=== PATIENT | male | born 1940 | race Caucasian/White ===

== ENCOUNTER 2022-12-04 10:05 | Outpatient (CLI) | payer MEDICARE ==
[2022-12-04 11:44] LABS: Hemoglobin 11.3 g/dL (13.5-17.5); Mean Corpuscular HGB CONC 31.8 g/dL (32.0-36.0); Mean Corpuscular Hemoglobin 27.2 pg (27.0-33.0); Mean Corpuscular Volume 85.5 fl (81.2-95.1); Platelet Count 216 10x3/uL (150-450); Red Blood Cell (RBC) Count 4.15 10x6/uL (4.32-5.72); White Blood Cell (WBC) Count 9.8 10x3/uL (3.5-10.5)
[2022-12-04 11:59] LABS: Prothrombin Time 10.3 sec (9.5-12.1)
[2022-12-04 12:02] LABS: Anion Gap 15 mmol/L (10-20); BUN (Urea Nitrogen) 31 mg/dL (8.4-25.7); Calc. Creatinine Clearance 0 mL/min (70-130); Calcium 9.7 mg/dL (7.8-10.44); Carbon Dioxide 24 mmol/L (23-31); Chloride 104 mmol/L (98-107); Estimated GFR 61; Glucose 98 mg/dL (83-110); Potassium 4.9 mmol/L (3.5-5.1); Sodium 138 mmol/L (136-145)
== END 2022-12-04 10:06 | disposition home or self-care (01) ==
LOC: CSHLAB 10:05
PROVIDERS: ATTEND Specialist
DX: Z01.818 Encounter for other preprocedural examination (principal); I65.29 Occlusion and stenosis of unspecified carotid artery; I73.9 Peripheral vascular disease, unspecified
CPT/HCPCS: 80048; 85027; 85610; 93005; 93010

== ENCOUNTER 2022-12-05 09:55 | Inpatient (IN) | payer MEDICARE, OTHER ==
[~2022-12-05 09:55] MED LIST: Iopamidol 300 61% 100 ML VIAL FS ONE
[2022-12-05] MEDS ORDERED: Phenylephrine 40 MG/NS 250 ML 0 ML ONE (09:56)
[2022-12-05] MEDS ORDERED: Lidocaine 1% (PF) 30 ML VIAL ONE ×2 (09:58)
[2022-12-05] MEDS ORDERED: Nitroglycerin 50 MG/250 ML BOT 0 ML ONE (09:59)
[2022-12-05] MEDS ORDERED: Heparin 10,000 UNITS/ 10 ML VIAL ONE (09:59)
[2022-12-05] MEDS ORDERED: Adenosine 6 MG/2 ML VIAL ONE (09:59)
[2022-12-05] MEDS ORDERED: Atropine Sulfate 0.4 mg/1 ml Vial ONE (10:02)
[2022-12-05] MEDS ORDERED: PHENYLEPHRINE-NS 100 MCG/ML 10 ML SYRINGE ONE (10:03)
[2022-12-05] MEDS ORDERED: Aspirin 325 MG TAB ONE (10:16)
[2022-12-05] MEDS ORDERED: Ascorbic Acid 500 mg Chewable Tablet ONE (10:16)
[2022-12-05] MEDS ORDERED: Fentanyl 100 MCG/2 ML VIAL ONE (11:12)
[2022-12-05] MEDS ORDERED: Midazolam HCl 2 mg/2 ml Vial ONE (11:12)
[2022-12-05] MEDS ORDERED: Ondansetron PF 4 MG/2 ML Vial ONE (11:59)
[2022-12-05] MEDS ORDERED: Nitroglycerin 0.4 MG TAB (25 Tab Bottle) ONE (12:16)
[2022-12-05] MEDS ORDERED: Nitroglycerin 0.4 MG TAB (25 Tab Bottle) SL PRN (12:26)
[2022-12-05] MEDS ORDERED: Mag-Al 1200 mg/1200 mg/30 ML UDCUP PO PRN (12:26)
[2022-12-05] MEDS ORDERED: Milk Of Magnesia 30 ML UDCUP PO PRN (12:26)
[2022-12-05] MEDS ORDERED: Acetaminophen/Codeine 30-300mg Tablet PO PRN (12:26)
[2022-12-05] MEDS ORDERED: traMADol HCl 50 MG TAB PO PRN (12:26)
[2022-12-05] MEDS ORDERED: Sodium Chloride 0.9% 1,000 ML IV SCH (12:30)
[2022-12-05] MEDS ORDERED: Clopidogrel Bisulfate 300 MG TAB ONE (13:21)
[2022-12-05 16:20] VITALS: TEMP 97.6
[2022-12-05] MEDS ORDERED: Rosuvastatin 10 MG TAB PO SCH (21:00)
[2022-12-06 03:41] LABS: #Basophils 0.1 10x3/uL (0.0-0.2); #Eosinphils 0.2 10x3/uL (0.0-0.5); #Monocytes 1.3 10x3/uL (0.0-1.1); #Neutrophils 8.3 10x3/uL (1.5-8.4); %Basophils 0.7 % (0.0-2.0); %Eosinophils 1.5 % (0.0-6.0); %Lymphocytes 7.4 % (18.0-47.0); %Monocytes 11.8 % (0.0-10.0); %Neutrophils 78.2 % (40.0-75.0); Hemoglobin 9.9 g/dL (13.5-17.5); Mean Corpuscular HGB CONC 31.7 g/dL (32.0-36.0); Mean Platelet Volume 10.1 fl (7.4-10.4); Platelet Count 202 10x3/uL (150-450); RBC Distribution Width 15.1 % (11.5-14.5); Red Blood Cell (RBC) Count 3.67 10x6/uL (4.32-5.72); White Blood Cell (WBC) Count 10.7 10x3/uL (3.5-10.5)
[2022-12-06 03:48] LABS: ALT (SGPT) 10 U/L (8-55); AST (SGOT) 16 U/L (5-34); Albumin 3.3 g/dL (3.4-4.8); Alkaline Phosphatase 68 U/L (40-110); Anion Gap 15 mmol/L (10-20); BUN (Urea Nitrogen) 33 mg/dL (8.4-25.7); Calc. Creatinine Clearance 39 mL/min (70-130); Calcium 8.7 mg/dL (7.8-10.44); Carbon Dioxide 23 mmol/L (23-31); Chloride 107 mmol/L (98-107); Estimated GFR 54; Globulin 2.5 g/dL (2.4-3.5); Glucose 86 mg/dL (83-110); Potassium 4.9 mmol/L (3.5-5.1); Sodium 140 mmol/L (136-145)
[2022-12-06 03:50] LABS: Bilirubin, Total 0.3 mg/dL (0.2-1.2); Protein, Total 5.8 g/dL (5.8-8.1)
[2022-12-06] MEDS: Aspirin Chewable 81 MG TAB PO SCH ×2 (08:40→08:48)
[2022-12-06 08:45] VITALS: BP 147/53
[2022-12-06] MEDS ORDERED: Lisinopril 20 MG TAB PO SCH (09:00)
[2022-12-06] MEDS ORDERED: Clopidogrel Bisulfate 75 MG TAB PO SCH (09:00)
[2022-12-06] MEDS ORDERED: Amlodipine 5 MG TAB PO SCH (09:00)
== END 2022-12-06 11:36 | disposition home or self-care (01) | DRG 36 ==
LOC: CSHSDC 09:55 → CSHIMCU 15:15
PROVIDERS: ADMIT Specialist; ATTEND Specialist
PROC: 037K3DZ Dilation of Right Internal Carotid Artery with Intraluminal Device, Percutaneous Approach (ICD-10-PCS; principal; 2022-12-05)
PROC: B41D1ZZ Fluoroscopy of Aorta and Bilateral Lower Extremity Arteries using Low Osmolar Contrast (ICD-10-PCS; 2022-12-05)
PROC: B3151ZZ Fluoroscopy of Bilateral Common Carotid Arteries using Low Osmolar Contrast (ICD-10-PCS; 2022-12-05)
PROC: B41C1ZZ Fluoroscopy of Pelvic Arteries using Low Osmolar Contrast (ICD-10-PCS; 2022-12-05)
PROC: B343ZZ3 Ultrasonography of Right Common Carotid Artery, Intravascular (ICD-10-PCS; 2022-12-05)
PROC: B34 Imaging, Upper Arteries, Ultrasonography (ICD-10-PCS; 2022-12-05)
DX: I65.23 Occlusion and stenosis of bilateral carotid arteries (principal); I70.213 Atherosclerosis of native arteries of extremities with intermittent claudication, bilateral legs; Z95.1 Presence of aortocoronary bypass graft; F03.90 Unspecified dementia, unspecified severity, without behavioral disturbance, psychotic disturbance, mood disturbance, and anxiety; I48.0 Paroxysmal atrial fibrillation; N18.9 Chronic kidney disease, unspecified; I12.9 Hypertensive chronic kidney disease with stage 1 through stage 4 chronic kidney disease, or unspecified chronic kidney disease; I25.118 Atherosclerotic heart disease of native coronary artery with other forms of angina pectoris; E78.2 Mixed hyperlipidemia; L40.9 Psoriasis, unspecified; Z98.42 Cataract extraction status, left eye; Z79.899 Other long term (current) drug therapy; Z79.82 Long term (current) use of aspirin; Z79.02 Long term (current) use of antithrombotics/antiplatelets; Z91.041 Radiographic dye allergy status; Z91.013 Allergy to seafood; I25.2 Old myocardial infarction; Z82.49 Family history of ischemic heart disease and other diseases of the circulatory system; Z88.8 Allergy status to other drugs, medicaments and biological substances
CPT/HCPCS: 36215; 36222; 36225; 36228; 36245; 37215; 37252; 37253; 75625; 75710; 75716; 75736; 80053; 85025; 85347; 93005; 93010; 94760; 94762; 99152; 99153; C1753; C1760; C1769; C1874; C1884; C1894; J0153; J0461; J1644; J2001; J2250; J2405; J3010; J7050; Q9967